=== PATIENT | female | born 1970 | race Caucasian/White ===

== ENCOUNTER 2017-09-10 10:55 | Observation (INO) | payer BC ==
--- NOTE | 2017-09-10 11:51 | ED PDOC ---
HPI: Chest Pain Time Seen by Provider: 09/10/17 11:16 Chief Complaint (Nursing): Chest Pain Chief Complaint (Provider): Chest tightness History Per: Patient History/Exam Limitations: no limitations Additional Complaint(s): Pt states she woke up with tingling of fingers in both hands today. Pt reports chest tightness/pain and SOB with exertion X 2 months, associated with L sided neck pain. Was evaluated by PMD who referred her to [facility], also evaluated by Prompt MD who told her she had an arrhythmia. Pt states she is an avid runner and lately she has not been able to run as long and her HR has been increasing to 190. Denies cough, nausea, vomiting. Also reports swelling and pain to R calf X 2 years. Past Medical History Reviewed: Nursing Documentation, Vital Signs Vital Signs: Last Vital Signs Temp 97.7 F 09/10/17 11:02 Pulse 83 09/10/17 11:02 Resp 18 09/10/17 11:02 BP 127/74 09/10/17 11:02 Pulse Ox 98 09/10/17 11:53 - Medical History PMH: Seizures - Family History Family History: States: ID (Early ID) - Social History Current smoker - smoking cessation education provided: No Alcohol: None - Allergies Allergies/Adverse Reactions: Allergies Allergy/AdvReac Type Severity Reaction Status Date / Time No Known Allergies Allergy Verified 09/10/17 11:19 KALA Risk Score for UA/NSTEMI - KALA Risk Score Age > 64: NO 3 or more CAD Risk Factors: NO Known CAD (Stenosis greater than 50%): NO Aspirin use in past 7 days: NO Severe Angina: YES EKG ST changes greater than 0.5mm: NO Positive Cardiac Marker: NO KALA Score: 1 Risk %: 5% Wells Criteria for PE - Wells Criteria for Pulmonary Embolism Clinical Signs and Symptoms of DVT: No P.E is #1 Diagnosis, or Equally Likely: No Heart Rate >100: No Immobilization at least 3 days;Surgery previous 4 weeks: No Previous, objectively diagnosed PE or DVT: No Hemoptysis: No Malignancy w/treatment within 6 months, or palliative: No Total Score: 0 Review of Systems Constitutional: Negative for: Fever, Chills Cardiovascular: Positive for: Chest Pain, Palpitations Respiratory: Positive for: Shortness of Breath. Negative for: Cough Gastrointestinal: Negative for: Nausea, Vomiting, Abdominal Pain, Diarrhea Genitourinary Female: Negative for: Dysuria, Hematuria Musculoskeletal: Positive for: Leg Pain Skin: Negative for: Rash, Lesions Neurological: Negative for: Headache, Dizziness - ECG O2 Sat by Pulse Oximetry: 98 Disposition - Disposition Forms: [employer] (E[place]ian)
[2017-09-10 12:06] LABS: BASO # 0.1 K/uL (0.0-0.2); BASO % 0.9 % (0.0-2.0); EOS % 0.7 % (0.0-4.0); HEMOGLOBIN 14.5 g/dL (12.0-16.0); LYMPH # 2.1 K/uL (1.0-4.3); LYMPH % 30.7 % (20.0-40.0); MEAN CORPUSCULAR HEMOGLOBIN 32.4 pg (27.0-31.0); MEAN CORPUSCULAR HGB CONC 33.4 g/dL (33.0-37.0); MEAN PLATELET VOLUME 7.3 fl (7.2-11.7); MONO # 0.5 K/uL (0.0-0.8); MONO % 7.5 % (0.0-10.0); NEUT # 4.1 K/uL (1.8-7.0); NEUT % 60.2 % (50.0-75.0); RBC 4.47 Mil/uL (3.80-5.20); RED CELL DISTRIBUTION WIDTH 12.5 % (11.5-14.5); WHITE BLOOD COUNT 6.9 K/uL (4.8-10.8)
[2017-09-10 12:14] LABS: PROTHROMBIN TIME 10.6 Seconds (9.8-13.1)
[2017-09-10 12:15] LABS: PARTIAL THROMBOPLASTIN TIME 22.7 Seconds (25.6-37.1)
[2017-09-10 12:17] LABS: ALB/GLOB RATIO 1.3 (1.0-2.1); ALBUMIN 4.4 g/dL (3.5-5.0); ALT/SGPT 32 U/L (9-52); AST/SGOT 23 U/L (14-36); BLOOD UREA NITROGEN 12 mg/dl (7-17); CALCIUM 9.2 mg/dL (8.4-10.2); GFR AFRICAN-AMERICAN > 60; GFR NON-AFRICAN AMERICAN > 60
[2017-09-10] MEDS ORDERED: Potassium Chloride 20 mEq ER Tab PO STA (12:25)
[2017-09-10] MEDS ORDERED: Potassium Chloride 20 mEq ER Tab PO ONE (12:39)
[2017-09-10] MEDS ORDERED: Iohexol 300 100 ML IJ ONE (12:53)
[2017-09-10] MEDS ORDERED: Sodium Chloride 0.9% 1,000 ML IV STA (13:10)
[2017-09-10] MEDS ORDERED: Potassium Chloride 10 mEq ER Tab PO STA (13:10)
--- NOTE | 2017-09-10 13:25 | RAD ---
HISTORY: Chest tightness COMPARISON: No prior. FINDINGS: LUNGS: No active pulmonary disease. PLEURA: No significant pleural effusion identified, no pneumothorax apparent. CARDIOVASCULAR: Normal. OSSEOUS STRUCTURES: No significant abnormalities. VISUALIZED UPPER ABDOMEN: Normal. OTHER FINDINGS: None. IMPRESSION: No active disease.
--- NOTE | 2017-09-10 15:17 | CT ---
PROCEDURE: CT Chest with contrast (Pulmonary Angiogram) HISTORY: Palpitations COMPARISON: None available. TECHNIQUE: Axial computed tomography images were obtained of the chest in the pulmonary arterial phase of enhancement. Coronal and sagittal reformatted images were created and reviewed. Intravenous contrast dose: Radiation dose: Total exam DLP = mGy-cm. This CT exam was performed using one or more of the following dose reduction techniques: Automated exposure control, adjustment of the mA and/or kV according to patient size, and/or use of iterative reconstruction technique. FINDINGS: PULMONARY ARTERIES: Unremarkable. No pulmonary embolism. AORTA: No acute findings. No thoracic aortic aneurysm. LUNGS: Unremarkable. No nodule, mass or pulmonary consolidation. PLEURAL SPACES: Unremarkable. No effusion or pneuomothorax. HEART: Unremarkable. No cardiomegaly. No significant pericardial effusion. LYMPH NODES: No lymphadenopathy. BONES, CHEST WALL: Unremarkable. No fracture or destructive lesion OTHER FINDINGS: Unremarkable. IMPRESSION: Unremarkable CT pulmonary angiogram. No pulmonary embolus.
--- NOTE | 2017-09-10 16:03 | CP.PCM.HP ---
History of Present Illness - History of Present Illness History of Present Illness: 47 yo female with history of Complex Partial Seizure came in because of rapid heart rate associated with chest pressure and SOB while running about 2 miles yesterday. She also complained of tingling sensation on her fingertips. She has a heart monitor watch which recorded her heart rate from 175 to 190. 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 The last 2 years she noted her heart rate runs into 175 to 190 but has no associated symptoms aside from the palpitation. Recently in about 2 months, her endurance dropped. She usually able to run 5 miles but now could only tolerate 1.5 to 2 miles without getting SOB. She also could not make her self climb a 5 flights of stair when before she could. She was seen by her PCP and an urgent care physician who both advised her to see a special forces engineer sergeant whom she made an appointment to but decided today to be checked up in the ER Present on Admission - Present on Admission Any Indicators Present on Admission: No History of DVT/PE: No History of Uncontrolled Diabetes: No Urinary Catheter: No Decubitus Ulcer Present: No Review of Systems - Review of Systems All systems: reviewed and no additional remarkable complaints except (aside from those mentioned above, 12 point system review were negative by me) Past Patient History - Tetanus Immunizations Tetanus Immunization: Unknown - Past Social History Smoking Status: Never Smoked Alcohol: Occasional Drugs: Denies - CARDIAC Hx Cardia Arrhythmia: Yes (tachyarrhytmia) - PULMONARY Hx Respiratory Disorders: No - NEUROLOGICAL Hx Seizures: Yes (complex partial seizure) - HEENT Hx HEENT Problems: No - RENAL Hx Chronic Kidney Disease: No - ENDOCRINE/METABOLIC Hx Endocrine Disorders: No - HEMATOLOGICAL/ONCOLOGICAL Hx Blood Disorders: No - INTEGUMENTARY Hx Dermatological Problems: No - MUSCULOSKELETAL/RHEUMATOLOGICAL Hx Musculoskeletal Disorders: No - GASTROINTESTINAL Hx Gastrointestinal Disorders: No - GENITOURINARY/GYNECOLOGICAL Hx Genitourinary Disorders: No - PSYCHIATRIC Hx Psychophysiologic Disorder: No Hx Substance Use: No - SURGICAL HISTORY Hx Surgeries: No - ANESTHESIA Hx Anesthesia: No Meds Allergies/Adverse Reactions: Allergies Allergy/AdvReac Type Severity Reaction Status Date / Time No Known Allergies Allergy Verified 09/10/17 11:19 Physical Exam - Constitutional Appears: No Acute Distress - Head Exam Head Exam: ATRAUMATIC - Eye Exam Eye Exam: absent: Scleral icterus - ENT Exam ENT Exam: Mucous Membranes Moist - Neck Exam Neck exam: Negative for: Meningismus - Respiratory Exam Respiratory Exam: absent: Rales, Rhonchi, Wheezes, Respiratory Distress - Cardiovascular Exam Cardiovascular Exam: REGULAR RHYTHM, +S1, +S2 - GI/Abdominal Exam GI & Abdominal Exam: Soft. absent: Tenderness - Rectal Exam Rectal Exam: Deferred - Extremities Exam Extremities exam: Negative for: calf tenderness, pedal edema - Back Exam Back exam: absent: tenderness - Neurological Exam Neurological exam: Alert, Oriented x3 - Psychiatric Exam Psychiatric exam: Anxious - Skin Skin Exam: Dry, Intact Results - Vital Signs Recent Vital Signs: Last Vital Signs Temp 97.7 F 09/10/17 11:02 Pulse 83 09/10/17 11:02 Resp 18 09/10/17 11:02 BP 127/74 09/10/17 11:02 Pulse Ox 98 09/10/17 12:24 - Labs Result Diagrams: 09/10/17 12:00 09/10/17 12:00 Labs: Laboratory Results - last 24 hr 09/10/17 09/10/17 09/10/17 12:00 12:00 12:00 WBC 6.9 RBC 4.47 Hgb 14.5 Hct 43.3 MCV 97.0 MCH 32.4 H MCHC 33.4 RDW 12.5 Plt Count 276 MPV 7.3 Neut % (Auto) 60.2 Lymph % (Auto) 30.7 [place] % (Auto) 7.5 Eos % (Auto) 0.7 Baso % (Auto) 0.9 Neut # (Auto) 4.1 Lymph # (Auto) 2.1 [place] # (Auto) 0.5 Eos # (Auto) 0.0 Baso # (Auto) 0.1 PT 10.6 INR 1.0 APTT 22.7 L D-Dimer, Quantitative 252 H Sodium 142 Potassium 3.5 L Chloride 105 Carbon Dioxide 19 L Anion Gap 22 H BUN 12 Creatinine 0.8 Est GFR ( Amer) > 60 Est GFR (Non-Af Amer) > 60 Random Glucose 103 Calcium 9.2 Total Bilirubin 0.6 AST 23 ALT 32 Alkaline Phosphatase 47 Troponin I < 0.0120 Total Protein 7.8 Albumin 4.4 Globulin 3.4 Albumin/Globulin Ratio 1.3 TSH 3rd Generation 2.83 Assessment & Plan - Assessment and Plan (Free Text) Assessment: 47 yo female with history of Complex Partial Seizure came in because of rapid heart rate associated with chest pressure and SOB while running about 2 miles yesterday. She also complained of tingling sensation on her fingertips. She has a heart monitor watch which recorded her heart rate from 175 to 190. 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 The last 2 years she noted her heart rate runs into 175 to 190 but has no associated symptoms aside from the palpitation. Recently in about 2 months, her endurance dropped. She usually able to run 5 miles but now could only tolerate 1.5 to 2 miles without getting SOB. She also could not make her self climb a 5 flights of stair when before she could. She was seen by her PCP and an urgent care physician who both advised her to see a special forces engineer sergeant whom she made an appointment to but decided today to be checked up in the ER 1. Chest Pain serial Troponin and EKG CT scan of chest: negative for PE 2. Palpitation continue cardiac monitoring ECHO cardiology consult with Dr Mendoza
[2017-09-10 17:02] VITALS: BMI 18.1
--- NOTE | 2017-09-10 17:07 | US ---
EXAM: Venous Doppler unilateral right INDICATIONS: Pain. Evaluate for deep venous thrombosis. TECHNIQUE: Duplex venous evaluation of the right lower extremity was performed utilizing graded compression, color Doppler and spectral Doppler interrogation. COMPARISON: None available. FINDINGS: There is normal morphology, compressibility, Doppler flow, and augmentation of the right common femoral, femoral, and popliteal veins. Visualized portions of the posterior tibial vein are unremarkable. IMPRESSION: No evidence of deep venous thrombosis in the right femoropopliteal system.
[2017-09-10] MEDS: Enoxaparin 40 mg Syringe SC SCH (18:19)
[2017-09-10] MEDS ORDERED: ZONISAMIDE 400 MG PO SCH (22:00)
[2017-09-11 05:32] LABS: BASO % 0.8 % (0.0-2.0); EOS # 0.1 K/uL (0.0-0.7); EOS % 1.8 % (0.0-4.0); HEMOGLOBIN 12.1 g/dL (12.0-16.0); LYMPH # 1.7 K/uL (1.0-4.3); LYMPH % 35.7 % (20.0-40.0); MEAN CELL VOLUME 96.1 fl (81.0-99.0); MEAN CORPUSCULAR HEMOGLOBIN 32.5 pg (27.0-31.0); MEAN CORPUSCULAR HGB CONC 33.8 g/dL (33.0-37.0); MEAN PLATELET VOLUME 7.2 fl (7.2-11.7); MONO # 0.5 K/uL (0.0-0.8); MONO % 9.6 % (0.0-10.0); NEUT # 2.5 K/uL (1.8-7.0); NEUT % 52.1 % (50.0-75.0); NRBC % 0.1 % (0.0-0.0); RBC 3.71 Mil/uL (3.80-5.20); RED CELL DISTRIBUTION WIDTH 12.2 % (11.5-14.5); WHITE BLOOD COUNT 4.9 K/uL (4.8-10.8)
[2017-09-11 05:34] LABS: BLOOD UREA NITROGEN 12 mg/dl (7-17); CALCIUM 8.4 mg/dL (8.4-10.2); GFR AFRICAN-AMERICAN > 60; GFR NON-AFRICAN AMERICAN > 60
[2017-09-11 05:43] LABS: B-TYPE NATRIURETIC PEPTIDE 110 pg/ml (0-450)
--- NOTE | 2017-09-11 08:18 | CARD ---
APPROVED REPORT EKG Measurement Heart [id number] ID [id number] <Conclusion> Sinus rhythm with occasional premature ventricular complexes Right atrial enlargement Borderline ECG
[2017-09-11] MEDS ORDERED: Pantoprazole 40 mg EC Tab PO SCH (09:00)
[2017-09-11] MEDS: Enoxaparin 40 mg Syringe SC SCH (09:07)
--- NOTE | 2017-09-11 09:24 | CP.PCM.CON ---
History of Present Illness - History of Present Illness History of Present Illness: this 47-year-old premenopausal female with a history of being in endurance training for 3-4 years who has run couple of marathons has come in to the emergency room complaining of easy fatigability as well as rapid rise in heart rate with minimal exertion. The patient denies any significant palpitations at rest and denies having suffered recent febrile illnesses. She has received hepatitis B vaccination few weeks back following which she briefly felt palpitations which subsided in a matter of 30-40 minutes spontaneously. The patient denies sudden weight loss of thyroid disease. The patient denies using any recreational drugs. She does not smoke. She has a history of seizure disorder for which she has taken medications for the last 5-6 years. There is a family history of her father having a cardiac murmur but it has not affected his effort tolerance. Her siblings have no cardiac issues. Physical examination shows a young female who is thin built and anxious about her hospitalization. The telemetry shows sinus rhythm with frequent isolated premature ventricular beats with an average heart rate in the range of 70-80 bpm even while at rest. There is no sustained ectopic tachycardia arrhythmia on the telemetry. Her blood pressure was 104/60 mmHg. Her jugular venous pressure was not elevated and there was no edema over her lower extremity. The patient was able to lie flat in bed. She bleeds at 14-16 breaths per minute. Her pedal pulses were well felt and there were no carotid bruits or thyroid and breast did not reveal anything abnormal. Her extremities were warm and nailbeds were pink. There was no central or peripheral cyanosis. There was no clubbing. The apex was vaguely felt in the fifth space the first and second heart sounds were normal. There was a brief apical systolic murmur. There was no S3 gallop. There were no rales. Her abdomen was soft and liver and spleen are not palpable. Her electrocardiogram showed sinus rhythm interrupted by isolated premature ventricular beats but otherwise normal pattern. Her lab data showed normal hemoglobin and hematocrit with normal WBC and platelet count. Her d-dimer was elevated. Her BUN/creatinine were normal her potassium was normal and liver profile and thyroid file were normal. CT angiogram of the chest has ruled out evidence of pulmonary embolism and venous duplex of right lower extremity has ruled out any evidence of DVT in right lower extremity. (?? why only rt lower extremity) Impression: Recent onset of effort intolerance in a patient with endurance training. An echocardiogram will be done to rule out mitral valve disease and to evaluate her left ventricular systolic function in this thin built female whose heart rate at rest ranges between 70-80 bpm which is unusual for an endurance trained individual. Past Patient History - Tetanus Immunizations Tetanus Immunization: Unknown - Past Medical History & Family History Past Medical History?: Yes - Past Social History Smoking Status: Never Smoked - CARDIAC Hx Cardiac Disorders: Yes Hx Cardia Arrhythmia: Yes (tachyarrhytmia) - PULMONARY Hx Respiratory Disorders: No - NEUROLOGICAL Hx Neurological Disorder: Yes Hx Seizures: Yes (complex partial seizure) - HEENT Hx HEENT Problems: No - RENAL Hx Chronic Kidney Disease: No - ENDOCRINE/METABOLIC Hx Endocrine Disorders: No - HEMATOLOGICAL/ONCOLOGICAL Hx Blood Disorders: No Hx AIDS: No Hx Human Immunodeficiency Virus (HIV): No - INTEGUMENTARY Hx Dermatological Problems: No - MUSCULOSKELETAL/RHEUMATOLOGICAL Hx Musculoskeletal Disorders: No Hx Falls: No - GASTROINTESTINAL Hx Gastrointestinal Disorders: No - GENITOURINARY/GYNECOLOGICAL Hx Genitourinary Disorders: No - PSYCHIATRIC Hx Psychophysiologic Disorder: No Hx Substance Use: No - SURGICAL HISTORY Hx Surgeries: Yes Other/Comment: LEFT BREAST MASS EXCISION 2013 - ANESTHESIA Hx Anesthesia: Yes Hx Anesthesia Reactions: Yes Hx Malignant Hyperthermia: No Has any member of the family had a problem w/ anesthesia?: No Meds Allergies/Adverse Reactions: Allergies Allergy/AdvReac Type Severity Reaction Status Date / Time No Known Allergies Allergy Verified 09/10/17 11:19 - Medications Medications: Current Medications Enoxaparin Sodium (Lovenox) 40 mg SC DAILY [facility] PRN Reason: Protocol Last Admin: 09/11/17 09:07 Dose: Not Given Home Med (Zonisamide [Zonegran]) 400 mg PO HS [facility] Last Admin: 09/10/17 22:47 Dose: 400 mg Lacosamide (Vimpat) 200 mg PO BID [facility] Last Admin: 09/10/17 18:16 Dose: 200 mg Pantoprazole Sodium (Protonix Ec Tab) 40 mg PO DAILY [facility] Last Admin: 09/11/17 09:06 Dose: 40 mg Results - Vital Signs Recent Vital Signs: Last Vital Signs Temp 98.2 F 09/11/17 08:00 Pulse 62 09/11/17 08:00 Resp 18 09/11/17 08:00 BP 99/62 L 09/11/17 08:00 Pulse Ox 97 09/11/17 08:00 - Labs Result Diagrams: 09/11/17 04:40 09/11/17 04:40 Labs: Laboratory Results - last 24 hr 09/10/17 09/10/17 09/10/17 12:00 12:00 12:00 WBC 6.9 RBC 4.47 Hgb 14.5 Hct 43.3 MCV 97.0 MCH 32.4 H MCHC 33.4 RDW 12.5 Plt Count 276 MPV 7.3 Neut % (Auto) 60.2 Lymph % (Auto) 30.7 [place] % (Auto) 7.5 Eos % (Auto) 0.7 Baso % (Auto) 0.9 Neut # (Auto) 4.1 Lymph # (Auto) 2.1 [place] # (Auto) 0.5 Eos # (Auto) 0.0 Baso # (Auto) 0.1 PT 10.6 INR 1.0 APTT 22.7 L D-Dimer, Quantitative 252 H Sodium 142 Potassium 3.5 L Chloride 105 Carbon Dioxide 19 L Anion Gap 22 H BUN 12 Creatinine 0.8 Est GFR ( Amer) > 60 Est GFR (Non-Af Amer) > 60 Random Glucose 103 Calcium 9.2 Total Bilirubin 0.6 AST 23 ALT 32 Alkaline Phosphatase 47 Troponin I < 0.0120 NT-Pro-B Natriuret Pep Total Protein 7.8 Albumin 4.4 Globulin 3.4 Albumin/Globulin Ratio 1.3 Thyroxine (T4) TSH 3rd Generation 2.83 09/10/17 09/11/17 09/11/17 20:01 04:40 04:40 WBC 4.9 RBC 3.71 L Hgb 12.1 D Hct 35.7 MCV 96.1 MCH 32.5 H MCHC 33.8 RDW 12.2 Plt Count 208 MPV 7.2 Neut % (Auto) 52.1 Lymph % (Auto) 35.7 [place] % (Auto) 9.6 Eos % (Auto) 1.8 Baso % (Auto) 0.8 Neut # (Auto) 2.5 Lymph # (Auto) 1.7 [place] # (Auto) 0.5 Eos # (Auto) 0.1 Baso # (Auto) 0.0 PT INR APTT D-Dimer, Quantitative Sodium 141 Potassium 3.8 Chloride 110 H Carbon Dioxide 18 L Anion Gap 17 BUN 12 Creatinine 0.7 Est GFR ( Amer) > 60 Est GFR (Non-Af Amer) > 60 Random Glucose 77 Calcium 8.4 Total Bilirubin AST ALT Alkaline Phosphatase Troponin I < 0.0120 < 0.0120 NT-Pro-B Natriuret Pep 110 Total Protein Albumin Globulin Albumin/Globulin Ratio Thyroxine (T4) 6.20 TSH 3rd Generation 3.77
--- NOTE | 2017-09-11 11:44 | CARD ---
APPROVED REPORT EXAM: Two-dimensional and M-mode echocardiogram with Doppler and color Doppler. Other Information Quality : GoodRhythm : NSR INDICATION Chest Pain 2D DIMENSIONS IVSd0.55 (0.7-1.1cm)LVDd4.08 (3.9-5.9cm) LVOT Diameter1.69 (1.8-2.4cm)PWd0.55 (0.7-1.1cm) IVSs0.80 (0.8-1.2cm)LVDs3.02 (2.5-4.0cm) FS (%) 25.9 %PWs0.94 (0.8-1.2cm) M-Mode DIMENSIONS Left Atrium (MM)3.13 (2.5-4.0cm)IVSd0.55 (0.7-1.1cm) Aortic Root2.77 (2.2-3.7cm)LVDd4.52 (4.0-5.6cm) Aortic Cusp Exc.1.79 (1.5-2.0cm)PWd0.69 (0.7-1.1cm) IVSs0.81 cmFS (%) 32 % LVDs3.08 (2.0-3.8cm)PWs0.88 cm Mitral Valve MV E Copfitqc61.4cm/sMV DECEL [id number] A Fxelmpnn87.6cm/s MV [id number]/A ratio1.2MVA (PHT)4.02cm2 TDI Lateral E' Peak V19.15cm/sMedial E' Peak V13.20cm/sE/Lateral E'3.8 E/Medial E'5.5 Pulmonary Valve PV Peak Afwhkqwx87.1cm/s Tricuspid Valve TR Peak Axotkblx532jo/sRAP [id number] Peak Gr.16mmHg [id number] LEFT VENTRICLE The left ventricle is normal size. The left ventricular function is normal. The left ventricular ejection fraction is within the normal range. The Ejection Fraction is 55-60%. There is normal LV segmental wall motion. The left ventricular diastolic function is normal. RIGHT VENTRICLE The right ventricle is normal size. The right ventricular systolic function is normal. ATRIA The left atrium size is normal. The right atrium size is normal. AORTIC VALVE The aortic valve is normal in structure. No aortic regurgitation is present. There is no aortic valvular stenosis. MITRAL VALVE The mitral valve is normal in structure. There is no mitral valve stenosis. Mitral regurgitation is trace. TRICUSPID VALVE The tricuspid valve is normal in structure. There is trace tricuspid regurgitation. PULMONIC VALVE The pulmonary valve is normal in structure. There is no pulmonic valvular regurgitation. GREAT VESSELS The aortic root is normal in size. The IVC is normal in size and collapses >50% with inspiration. PERICARDIAL EFFUSION The pericardium appears normal. <Conclusion> The left ventricle is normal size. The left ventricular function is normal. The left ventricular ejection fraction is within the normal range. The Ejection Fraction is 55-60%. Mitral regurgitation is trace. There is trace tricuspid regurgitation.
--- NOTE | 2017-09-11 12:31 | US ---
PROCEDURE: Left lower extremity duplex venous sonography HISTORY: r/o DVT COMPARISON: None available. TECHNIQUE: Real-time ultrasound scan of the veins with color flow, spectral waveform analysis and compression FINDINGS: Normal flow, augmentation and compressibility were noted. No evidence of deep vein thrombosis. IMPRESSION: Negative seventy left lower extremity for acute deep vein thrombosis.
[2017-09-11 13:00] VITALS: BP 95/60; PULSE 70; RESP 20; TEMP 98; O2SAT 99
--- NOTE | 2017-09-11 13:59 | CP.PCM.DIS ---
Provider - Provider Date of Admission: 09/10/17 14:12 Attending physician: Dennis Landrum MD Consults: Cardio : Dr Mary Elder Time Spent in preparation of Discharge (in minutes): 25 Diagnosis - Discharge Diagnosis (1) Chest pain Status: Acute (2) Palpitation Status: Acute (3) Worsening functional endurance Status: Acute Hospital Course - Lab Results Lab Results: Most Recent Lab Values WBC 4.9 K/uL (4.8-10.8) 09/11/17 04:40 RBC 3.71 Mil/uL (3.80-5.20) L 09/11/17 04:40 Hgb 12.1 g/dL (12.0-16.0) D 09/11/17 04:40 Hct 35.7 % (34.0-47.0) 09/11/17 04:40 MCV 96.1 fl (81.0-99.0) 09/11/17 04:40 MCH 32.5 pg (27.0-31.0) H 09/11/17 04:40 MCHC 33.8 g/dL (33.0-37.0) 09/11/17 04:40 RDW 12.2 % (11.5-14.5) 09/11/17 04:40 Plt Count 208 K/uL (130-400) 09/11/17 04:40 MPV 7.2 fl (7.2-11.7) 09/11/17 04:40 Neut % (Auto) 52.1 % (50.0-75.0) 09/11/17 04:40 Lymph % (Auto) 35.7 % (20.0-40.0) 09/11/17 04:40 [place] % (Auto) 9.6 % (0.0-10.0) 09/11/17 04:40 Eos % (Auto) 1.8 % (0.0-4.0) 09/11/17 04:40 Baso % (Auto) 0.8 % (0.0-2.0) 09/11/17 04:40 Neut # (Auto) 2.5 K/uL (1.8-7.0) 09/11/17 04:40 Lymph # (Auto) 1.7 K/uL (1.0-4.3) 09/11/17 04:40 [place] # (Auto) 0.5 K/uL (0.0-0.8) 09/11/17 04:40 Eos # (Auto) 0.1 K/uL (0.0-0.7) 09/11/17 04:40 Baso # (Auto) 0.0 K/uL (0.0-0.2) 09/11/17 04:40 PT 10.6 Seconds (9.8-13.1) 09/10/17 12:00 INR 1.0 (0.9-1.2) 09/10/17 12:00 APTT 22.7 Seconds (25.6-37.1) L 09/10/17 12:00 D-Dimer, Quantitative 252 ng/mlDDU (0-230) H 09/10/17 12:00 Sodium 141 mmol/l (132-148) 09/11/17 04:40 Potassium 3.8 MMOL/L (3.6-5.0) 09/11/17 04:40 Chloride 110 mmol/L (98-107) H 09/11/17 04:40 Carbon Dioxide 18 mmol/L (22-30) L 09/11/17 04:40 Anion Gap 17 (10-20) 09/11/17 04:40 BUN 12 mg/dl (7-17) 09/11/17 04:40 Creatinine 0.7 mg/dl (0.7-1.2) 09/11/17 04:40 Est GFR ( Amer) > 60 09/11/17 04:40 Est GFR (Non-Af Amer) > 60 09/11/17 04:40 Random Glucose 77 mg/dL (65-105) 09/11/17 04:40 Calcium 8.4 mg/dL (8.4-10.2) 09/11/17 04:40 Total Bilirubin 0.6 mg/dl (0.2-1.3) 09/10/17 12:00 AST 23 U/L (14-36) 09/10/17 12:00 ALT 32 U/L (9-52) 09/10/17 12:00 Alkaline Phosphatase 47 U/L (38-126) 09/10/17 12:00 Troponin I < 0.0120 ng/mL (0.00-0.120) 09/11/17 04:40 NT-Pro-B Natriuret Pep 110 pg/ml (0-450) 09/11/17 04:40 Total Protein 7.8 G/DL (6.3-8.2) 09/10/17 12:00 Albumin 4.4 g/dL (3.5-5.0) 09/10/17 12:00 Globulin 3.4 gm/dL (2.2-3.9) 09/10/17 12:00 Albumin/Globulin Ratio 1.3 (1.0-2.1) 09/10/17 12:00 Thyroxine (T4) 6.20 ug/dl (5.5-11.0) 09/11/17 04:40 TSH 3rd Generation 3.77 mIU/ML (0.46-4.68) 09/11/17 04:40 - Hospital Course Hospital Course: 47-year-old premenopausal female with a history Seizure Dis , and has in endurance training for 3-4 years and who has run couple of marathons came in to the emergency room complaining of easy fatigability as well as rapid rise in heart rate with minimal exertion. The patient denies any significant palpitations at rest and denies having suffered recent febrile illnesses.. The patient denies sudden weight loss , no thyroid disease. The patient denies using any recreational drugs. She does not smoke. She has a history of seizure disorder for which she has taken medications for the last 5-6 years. EKG done in the ED showed occ PVCs, Troponin x 3 negative. Ddimer was elevated . CTA of Pulm was negative for any PE. Doppler US of the LE was neg for DVT. TSH : normal. Cardiolology was consulted . Dr Elder rec ECHO w/c showed normal EF, Trace MR , TR. No abn rhythm bnoted on Tele monitoring. Discharge Exam - Head Exam Head Exam: ATRAUMATIC, NORMAL INSPECTION, NORMOCEPHALIC - Eye Exam Eye Exam: EOMI, Normal appearance, PERRL Pupil Exam: NORMAL ACCOMODATION - ENT Exam ENT Exam: Mucous Membranes Moist, Normal External Ear Exam - Neck Exam Neck exam: Full Rom - Respiratory Exam Respiratory Exam: NORMAL BREATHING PATTERN. absent: Respiratory Distress - Cardiovascular Exam Cardiovascular Exam: REGULAR RHYTHM, +S1, +S2 - GI/Abdominal Exam GI & Abdominal Exam: Normal Bowel Sounds, Soft. absent: Tenderness - Extremities Exam Extremities exam: full ROM, normal capillary refill, pedal pulses present - Back Exam Back exam: FULL ROM. absent: CVA tenderness (L), CVA tenderness (R), vertebral tenderness - Neurological Exam Neurological exam: Alert, CN II-XII Intact, Normal Gait, Oriented x3, Reflexes Normal - Psychiatric Exam Psychiatric exam: Normal Affect, Normal Mood - Skin Skin Exam: Dry, Normal Color, Warm Discharge Plan - Follow Up Plan Condition: GOOD Disposition: HOME/ ROUTINE Instructions: Chest Pain (DC) Additional Instructions: appt with PMD yan for further work up as outpt appt with Dr Mary Elder in 1 wk Referrals: Brendon Elder MD [Staff Provider] -
== END 2017-09-11 14:41 | disposition home or self-care (01) ==
LOC: H.ER 10:55 → H.ERHOLD 14:12 → H.TEL 16:21
DX: R07.9 Chest pain, unspecified (principal); Z82.49 Family history of ischemic heart disease and other diseases of the circulatory system; G40.909 Epilepsy, unspecified, not intractable, without status epilepticus; R00.2 Palpitations
CPT/HCPCS: 36415; 71045; 71275; 80048; 80053; 81025; 83880; 84436; 84443; 84484; 85025; 85378; 85610; 85730; 93005; 93306; 93971; 99283; G0378; J7040; Q9967